=== PATIENT | male | born 1935 | race Caucasian/White ===

== ENCOUNTER 2017-10-27 18:16 | Inpatient (IN) | payer MEDICARE, BC, SELFPAY ==
[2017-10-27 18:58] VITALS: BP 141/73; PULSE 88; RESP 18; TEMP 37.6; O2SAT 98; BMI 26.2
[2017-10-27 19:00] VITALS: O2SAT 98
[2017-10-27 20:06] VITALS: BMI 26.2
--- NOTE | 2017-10-27 20:12 | NURSING ---
Discussed codes status with patient, at this time patient wishes to be a full code.
[2017-10-27 21:26] VITALS: BP 138/63; PULSE 105
[2017-10-27] MEDS: Metoprolol(XL)Succ 25 MG Tablet PO (21:26)
[2017-10-27] MEDS: Doxazosin 4 MG Tablet 8 MG PO (21:26)
[2017-10-27] MEDS: Finasteride 5 MG Tablet PO (21:26)
[2017-10-27] MEDS: Chlorhexidine 480 ML 15 ML PO (21:28)
[2017-10-27] MEDS: Heparin Injection (Vial) 5,000 UNIT/ML VIAL 5000 UNIT SC (21:30)
--- NOTE | 2017-10-27 22:03 | PCM.HP.STD ---
Problem List (1) Dysphagia Status: Acute (2) Esophageal cancer Status: Chronic (3) Cancer of neck Status: Chronic (4) Lung cancer Status: Chronic (5) Prostate cancer Status: Chronic (6) Hypertension Status: Chronic (7) Atrial fibrillation Status: Chronic (8) BPH (benign prostatic hyperplasia) Status: Chronic (9) Osteoarthritis Status: Chronic (10) Shortness of breath Status: Acute (11) GERD (gastroesophageal reflux disease) Status: Chronic History of Present Illness Date of Admission: 10/27/17 Chief Complaint: Here for rehabiltation, strengthening, prior to discharge home with siginficant other. The patient is a 82 year old Male with below past medical history significant for esophageal cancer with following, admitted from [facility]. 10/14/2017 Patient had dysphagia due to obstruction, EGD shows food particles. 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 Repeat EGD showed neoplastic progression, esophageal stent placed. He has increased secretions but able to cough out. Wash cloth on chest to catch secretions. 10/27/2017 Admit to TCU for rehabilitation, strengthening, prior to discharge home with significant other. Past Medical History Past Medical History (Chronic Problems): Chronic Problems Esophageal cancer (Chronic) Cancer of neck (Chronic) Lung cancer (Chronic) Prostate cancer (Chronic) Hypertension (Chronic) Atrial fibrillation (Chronic) BPH (benign prostatic hyperplasia) (Chronic) Osteoarthritis (Chronic) GERD (gastroesophageal reflux disease) (Chronic) Allergies No Known Allergies Allergy (Verified 03/02/17 15:00) Home Medications: Ambulatory Orders Medication Instructions Recorded Calcium Carbonate/Vitamin D3 1 each PO DAILY 03/02/17 [Calcium 600 + Vit D3 Caplet] Doxazosin Mesylate [Cardura] 4 mg PO QHS 03/02/17 Finasteride [Proscar] 5 mg PO QHS 03/02/17 Metoprolol Succinate [Toprol Xl] 25 mg PO QHS 03/02/17 Multivitamin [Multiple Vitamins] 1 each PO DAILY 03/02/17 Phytonadione [Mephyton, Vitamin K1] 2.5 mg PO X1 03/02/17 Warfarin Sodium [Coumadin] 5 mg PO QHS 03/02/17 Surgical History: - - Tracheostomy, Esophageal stent. Psychiatric History: No pertinent psych hx Lives: Spouse/ Significant Other Smoking Status: Former smoker Tobacco Use: Non-smoker Alcohol: Occasional Drugs: None - *Family History Maternal History Items: No pertinent history Paternal History Items: No pertinent history Review of Systems Constitutional: Denies: Chills, Fever, Weight Change HEENT: Denies: Head Aches, Sinus Congestion, Sinus Drainage Cardiovascular: Denies: Chest Pain, Palpitations Respiratory: Denies: Cough, Shortness of breath at rest, Sputum production Gastrointestinal: Denies: Abdominal Pain, Nausea, Vomiting Genitourinary: Denies: Dysuria Musculoskeletal: Denies: Joint Pain, Joint Tenderness Skin: Denies: Rash, Wounds Neurological: Denies: Numbness, Tingling, Focal weakness Psychiatric: Denies: Anxiety, Depression, Homicidal Ideations, Suicidal Ideations Hematologic/ Lymphatic: Denies: Easy Bruising, Easy Bleeding VTE Information - Inpt Only VTE Present on Admission: No VTE Mechan Device Prophylaxis: Knee High RONALD Hose VTE Pharm Prophylaxis ordered?: Yes Patient Problems: Active and Suspected Problems Dysphagia (Acute) Shortness of breath (Acute) - Physical Exam General: Alert, Oriented x3, Cooperative HEENT: Atraumatic, PERRLA, EOMI, Normocephalic Neck: Supple, No JVD, Negative Carotid Bruits, - - Tracheostomy. Lungs: Clear to auscultation, Normal air movement Cardiovascular: Regular rate, No murmurs Abdomen: Bowel Sounds Present, Soft, Non Tender Extremities: No edema, Capillary Refill Less than 3 Seconds Skin: No rashes, No breakdown Musculoskeletal: No Tenderness to Palpation of Joints or Extremities Neurological: Cranial nerves II-XII grossly intact Psych/Mental Status: Normal Affect, Appropriate Vital Signs Temp Pulse Resp BP Pulse Ox 99.6 F H 105 H 18 138/63 H 98 10/27/17 18:58 10/27/17 21:26 10/27/17 18:58 10/27/17 21:26 10/27/17 19:00 Oxygen Flow Rate (L/min) 4 Oxygen Delivery Method Trach Collar Weight: 92.675 kg Body Mass Index (BMI) 26.2 Assessment/Plan All Active Problems Dysphagia (Acute) Shortness of breath (Acute) 82 year old male with below past medical history significant for esophageal cancer, hospitalized for dysphagia, esophageal stent placed due to progression of cancer, admitted to TCU for rehabilitation, strengthening, prior to discharge home with significant other. Debility - PT/OT. Tracheostomy - ST. Pain - Tylenol 1000MG Q8H PRN mild pain. Bowel - Miralax 17GM daily, Senna/colace 1 tablet BID, Dulcoalx 10MG [place] daily PRN. Pneumonia vaccination - Administer Prevnar 13 and/or Pneumovax 23 as necessary. DVT prophylaxis - on Lovenox/warfarin bridge. Shortness of breath - Albuterol 2.5MG Q4H. Sore throat - Cepacol 1 lozenge 1 Q2H PRN, Peridex 15ML QID. BPH - Cardura 8MG QHS, Finasteride 5MG QHS. Congestion - Mucinex 600MG twice daily. Hypertension - Metoprolol succinate 25MG QHS. GERD - Pantoprazole 40MG daily. Atrial Fibrillation - Metoprolol succinate 25MG QHS, Warfarin 5MG 4x/day, 2.5MG 3x/day, on Lovenox bridge. Code Status - Esophageal stent is palliative, if resident does not progress with therapy, consider hospice referral for end of life. Resident currently FULL CODE.
--- NOTE | 2017-10-27 22:14 | HP.PCM_ITS ---
Problem List (1) Dysphagia Status: Acute (2) Esophageal cancer Status: Chronic (3) Cancer of neck Status: Chronic (4) Lung cancer Status: Chronic (5) Prostate cancer Status: Chronic (6) Hypertension Status: Chronic (7) Atrial fibrillation Status: Chronic (8) BPH (benign prostatic hyperplasia) Status: Chronic (9) Osteoarthritis Status: Chronic (10) Shortness of breath Status: Acute (11) GERD (gastroesophageal reflux disease) Status: Chronic History of Present Illness Date of Admission: 10/27/17 Chief Complaint: Here for rehabiltation, strengthening, prior to discharge home with siginficant other. The patient is a 82 year old Male with below past medical history significant for esophageal cancer with following, admitted from [facility]. 10/14/2017 Patient had dysphagia due to obstruction, EGD shows food particles. 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 Repeat EGD showed neoplastic progression, esophageal stent placed. He has increased secretions but able to cough out. Wash cloth on chest to catch secretions. 10/27/2017 Admit to TCU for rehabilitation, strengthening, prior to discharge home with significant other. Past Medical History Past Medical History (Chronic Problems): Chronic Problems Esophageal cancer (Chronic) Cancer of neck (Chronic) Lung cancer (Chronic) Prostate cancer (Chronic) Hypertension (Chronic) Atrial fibrillation (Chronic) BPH (benign prostatic hyperplasia) (Chronic) Osteoarthritis (Chronic) GERD (gastroesophageal reflux disease) (Chronic) Allergies No Known Allergies Allergy (Verified 03/02/17 15:00) Home Medications: Ambulatory Orders Medication Instructions Recorded Calcium Carbonate/Vitamin D3 1 each PO DAILY 03/02/17 [Calcium 600 + Vit D3 Caplet] Doxazosin Mesylate [Cardura] 4 mg PO QHS 03/02/17 Finasteride [Proscar] 5 mg PO QHS 03/02/17 Metoprolol Succinate [Toprol Xl] 25 mg PO QHS 03/02/17 Multivitamin [Multiple Vitamins] 1 each PO DAILY 03/02/17 Phytonadione [Mephyton, Vitamin K1] 2.5 mg PO X1 03/02/17 Warfarin Sodium [Coumadin] 5 mg PO QHS 03/02/17 Surgical History: - - Tracheostomy, Esophageal stent. Psychiatric History: No pertinent psych hx Lives: Spouse/ Significant Other Smoking Status: Former smoker Tobacco Use: Non-smoker Alcohol: Occasional Drugs: None - *Family History Maternal History Items: No pertinent history Paternal History Items: No pertinent history Review of Systems Constitutional: Denies: Chills, Fever, Weight Change HEENT: Denies: Head Aches, Sinus Congestion, Sinus Drainage Cardiovascular: Denies: Chest Pain, Palpitations Respiratory: Denies: Cough, Shortness of breath at rest, Sputum production Gastrointestinal: Denies: Abdominal Pain, Nausea, Vomiting Genitourinary: Denies: Dysuria Musculoskeletal: Denies: Joint Pain, Joint Tenderness Skin: Denies: Rash, Wounds Neurological: Denies: Numbness, Tingling, Focal weakness Psychiatric: Denies: Anxiety, Depression, Homicidal Ideations, Suicidal Ideations Hematologic/ Lymphatic: Denies: Easy Bruising, Easy Bleeding VTE Information - Inpt Only VTE Present on Admission: No VTE Mechan Device Prophylaxis: Knee High RONALD Hose VTE Pharm Prophylaxis ordered?: Yes Patient Problems: Active and Suspected Problems Dysphagia (Acute) Shortness of breath (Acute) - Physical Exam General: Alert, Oriented x3, Cooperative HEENT: Atraumatic, PERRLA, EOMI, Normocephalic Neck: Supple, No JVD, Negative Carotid Bruits, - - Tracheostomy. Lungs: Clear to auscultation, Normal air movement Cardiovascular: Regular rate, No murmurs Abdomen: Bowel Sounds Present, Soft, Non Tender Extremities: No edema, Capillary Refill Less than 3 Seconds Skin: No rashes, No breakdown Musculoskeletal: No Tenderness to Palpation of Joints or Extremities Neurological: Cranial nerves II-XII grossly intact Psych/Mental Status: Normal Affect, Appropriate Vital Signs Temp Pulse Resp BP Pulse Ox 99.6 F H 105 H 18 138/63 H 98 10/27/17 18:58 10/27/17 21:26 10/27/17 18:58 10/27/17 21:26 10/27/17 19:00 Oxygen Flow Rate (L/min) 4 Oxygen Delivery Method Trach Collar Weight: 92.675 kg Body Mass Index (BMI) 26.2 Assessment/Plan All Active Problems Dysphagia (Acute) Shortness of breath (Acute) 82 year old male with below past medical history significant for esophageal cancer, hospitalized for dysphagia, esophageal stent placed due to progression of cancer, admitted to TCU for rehabilitation, strengthening, prior to discharge home with significant other. * Debility - PT/OT. * Tracheostomy - ST. * Pain - Tylenol 1000MG Q8H PRN mild pain. * Bowel - Miralax 17GM daily, Senna/colace 1 tablet BID, Dulcoalx 10MG CT daily PRN. * Pneumonia vaccination - Administer Prevnar 13 and/or Pneumovax 23 as necessary. * DVT prophylaxis - on Lovenox/warfarin bridge. * Shortness of breath - Albuterol 2.5MG Q4H. * Sore throat - Cepacol 1 lozenge 1 Q2H PRN, Peridex 15ML QID. * BPH - Cardura 8MG QHS, Finasteride 5MG QHS. * Congestion - Mucinex 600MG twice daily. * Hypertension - Metoprolol succinate 25MG QHS. * GERD - Pantoprazole 40MG daily. * Atrial Fibrillation - Metoprolol succinate 25MG QHS, Warfarin 5MG 4x/day, 2.5MG 3x/day, on Lovenox bridge. * Code Status - Esophageal stent is palliative, if resident does not progress with therapy, consider hospice referral for end of life. Resident currently FULL CODE.
[2017-10-28] VITALS (7 sets, daily range): BP systolic 131; BP diastolic 59; PULSE 72–94; RESP 17–20; TEMP 36.8; O2SAT 93–98
[2017-10-28] MEDS: Acetaminophen 500 MG Tablet 1000 MG PO ×2 (02:32→18:38)
[2017-10-28 06:08] LABS: Absolute Lymphocyte Count 1.05 X10^3/ul (0.83-4.51); Absolute Neutrophil Count 8.5 X10^3/uL (2.0-7.7); Basophil# 0.02 X10^3/uL; Basophil% 0.2 % (0-1); Eosinophil# 0.08 X10^3/uL; Eosinophils% 0.7 % (0-5); Hematocrit 25.2 % (40-54); Hemoglobin 8.1 g/dl (13.0-16.5); Lymphocyte # 1.05 X10^3/ul (4.0); Lymphocyte % 9.7 % (19-41); Mean Corp Hgb Conc 32.1 g/gl (32-36); Mean Corpuscular Hgb 32.4 pg (27.0-32.0); Mean Corpuscular Volume 100.8 fL (80-94); Mean Platelet Vol. 9.1 fl (6.2-12.0); Monocyte# 1.17 X10^3/uL; Monocyte% 10.8 % (0-10); Neutrophil # 8.46 X10^3/uL (2.7-7.7); Platelet Count 276 K/mm3 (150-450); RBC Distribution Width CV 12.1 % (11.6-14.6); RBC Distribution Width SD 43.3 fl (35.1-43.9); White Blood Count 10.9 K/mm3 (4.4-11.0)
[2017-10-28 06:09] LABS: POSITIVE COUNT NO; POSITIVE DIFFERENTIAL NO; POSITIVE MORPHOLOGY NO
[2017-10-28 06:10] LABS: International Normalized Ratio 1.7
[2017-10-28 06:30] LABS: Anion Gap 9 (5-15); BUN 11 mg/dL (7-18); Calcium,Total 8.3 mg/dL (8.5-10.1); Chloride 102 mmol/L (98-107); Creatinine, Serum 0.74 mg/dL (0.70-1.30); EST Glomerular Filtration Rate 109 mL/min (>60); Est Glom Filt Rate - Afr Amer 131 mL/min (>60); Estimated Creatinine Clearance 67.36 ml/min; Glucose 115 mg/dL (74-106); Potassium 3.3 mmol/L (3.5-5.1); Sodium Level 141 mmol/L (136-145)
[2017-10-28] MEDS: Pantoprazole Sodium 40 MG Tablet PO (06:51)
[2017-10-28] MEDS: guaiFENesin 600 MG Tablet PO (06:51)
[2017-10-28] MEDS: Chlorhexidine 480 ML 15 ML PO ×4 (06:52→22:37)
[2017-10-28] MEDS: Enoxaparin 40 MG/0.4 ML Syringe SC (06:54)
[2017-10-28] MEDS: Albuterol 2.5 MG/3 ML VIAL.NEB. INHALATION ×5 (07:40→23:47)
[2017-10-28] MEDS: Iron Polysaccharide Complex 150 MG CAPSULE PO (09:12)
[2017-10-28] MEDS: Tuberculin,Purif.prot.deriv. 50 TU/ML Vial 5 ML ID (11:49)
--- NOTE | 2017-10-28 14:04 | NURSING ---
Per ST, patient now nectar thick, mechanical soft diet, supervised.
--- NOTE | 2017-10-28 14:12 | NURSING ---
Trach care provided. Copious amount of thick, yellow/green sputum with foul odor. Dr. Alcaraz made aware, NO for sputum culture and gram stain.
--- NOTE | 2017-10-28 14:25 | PCM.PN.RX ---
<Izaiah Wyatt D - Last Filed: 10/28/17 14:25> Progress Note - Pharmacy Subjective: TCU Admission Objective: Allergies No Known Allergies Allergy (Verified 03/02/17 15:00) Current Medications Generic Name Dose Route Start Last Admin Trade Name Freq PRN Reason Stop Dose Admin Acetaminophen 1,000 mg 10/27/17 22:16 10/28/17 02:32 Tylenol PO 1,000 mg Q8H PRN PRN Administration MILD PAIN (1-310) Albuterol Sulfate 2.5 mg 10/27/17 18:45 10/28/17 11:30 Ventolin Aerosols INHALATION Not Given Q4H.RT MARTA Bisacodyl 10 mg 10/27/17 18:40 Dulcolax RECTAL DAILY PRN Constipation Chlorhexidine Gluconate 15 ml 10/27/17 22:00 10/28/17 11:52 Peridex PO 15 ml 0600,1200,1800,2200 [facility] Administration Doxazosin Mesylate 8 mg 10/27/17 22:00 10/27/17 21:26 Cardura PO 8 mg QHS MARTA Administration Enoxaparin Sodium 40 mg 10/28/17 06:00 10/28/17 06:54 Lovenox SC 40 mg DAILY@0600 [facility] Administration Finasteride 5 mg 10/27/17 22:00 10/27/17 21:26 Proscar PO 5 mg QHS [facility] Administration Guaifenesin 600 mg 10/28/17 06:00 10/28/17 06:51 Mucinex PO 600 mg BID [facility] Administration Metoprolol Succinate 25 mg 10/27/17 22:00 10/27/17 21:26 Toprol Xl (Beta Marlin) PO 25 mg QHS [facility]A Administration Nutritional Formula (Lactose Free) 120 ml 10/28/17 06:00 10/28/17 12:00 Ensure Enlive PO 120 ml 4X/DAY [facility] Administration Pantoprazole Sodium 40 mg 10/28/17 06:00 10/28/17 06:51 Protonix PO 40 mg DAILY [facility] Administration Polyethylene Glycol 17 gm 10/28/17 06:00 10/28/17 06:50 Miralax PO Not Given DAILY [facility] Polysaccharide Iron Complex 150 mg 10/28/17 09:00 10/28/17 09:12 Ferrex 150 PO 150 mg DAILYCM [facility] Administration Potassium Chloride 20 meq 10/29/17 08:00 K-Dur PO DAILYCM [facility] Senna/Docusate Sodium 1 tablet 10/28/17 06:00 10/28/17 06:50 Senokot-S, Marissa-Colace PO Not Given BID [facility] Throat Lozenges 1 lozenge 10/27/17 18:34 Cepacol Sore Throat Lozenge MUCOUS MEM Q2H PRN PRN SORE THROAT Tuberculin PPD 5 tu 11/04/17 10:00 Tubersol, Aplisol, Ppd ID 11/04/17 10:01 X1 ONE Warfarin Sodium 5 mg 10/29/17 17:00 Coumadin (Pbkc) PO TuWeThSa@1700 [facility] Warfarin Sodium 2.5 mg 10/28/17 17:00 Coumadin (Pbkc) PO SuMoFr@1700 [facility] Problem List Dysphagia (Acute) Esophageal cancer (Chronic) Cancer of neck (Chronic) Lung cancer (Chronic) Prostate cancer (Chronic) Hypertension (Chronic) Atrial fibrillation (Chronic) BPH (benign prostatic hyperplasia) (Chronic) Osteoarthritis (Chronic) Shortness of breath (Acute) GERD (gastroesophageal reflux disease) (Chronic) Vital Signs Temp Pulse Resp BP Pulse Ox 99.6 F H 72 17 138/63 H 93 10/27/17 18:58 10/28/17 08:37 10/28/17 08:37 10/27/17 21:26 10/28/17 08:37 Oxygen Flow Rate (L/min) 4 Oxygen Delivery Method Trach Collar Weight: 92.675 kg Body Mass Index (BMI) 26.2 Sodium 141 mmol/L (136-145) 10/28/17 05:35 Potassium 3.3 mmol/L (3.5-5.1) L 10/28/17 05:35 Chloride 102 mmol/L (98-107) 10/28/17 05:35 Carbon Dioxide 30.0 mmol/L (21.0-32.0) 10/28/17 05:35 Anion Gap 9 (5-15) 10/28/17 05:35 BUN 11 mg/dL (7-18) 10/28/17 05:35 Creatinine 0.74 mg/dL (0.70-1.30) 10/28/17 05:35 Est GFR (MDRD) Af Amer 131 mL/min (>60) 10/28/17 05:35 Est GFR (MDRD) Non-Af 109 mL/min (>60) 10/28/17 05:35 BUN/Creatinine Ratio 15.0 RATIO (10-20) 10/28/17 05:35 Glucose 115 mg/dL (74-106) H 10/28/17 05:35 Assessment/Plan: 1) Pain APAP for mild pain, Cepacol for sore throat. Continue to monitor prn medication use, daily pain scores. 2) Pulm Albuterol scheduled, guaifenesin twice daily. Continue to monitor for shortness of breath. 3) BPH Doxazosin, finasteride. Continue to monitor for symptoms. 4) AFib/HTN Warfarin daily, metoprolol XL daily. Continue to monitor PT/INR, s/s bleeding, BP/HR. 5) GI Pantoprazole daily. Continue to monitor s/s GI distress 6) Nutrition Fe, KCl, Ensure. Continue to monitor electrolytes. 7) DVT PPx Enoxaparin daily. Continue to monitor s/s bleeding/clot, D/C when INR within goal range. Psychotropic Medications: None Unnecessary Medications: None Bowel Regimen: 8) Senna/s, PEG, prn bisacodyl. Continue to monitor prn medication use, for constipation/diarrhea. Date of Note:: 10/28/17 - Provider Comments Provider responsibility: Provider responsible to enter orders to implement recommendations <Ceasar Alcaraz Chi - Last Filed: 10/28/17 19:07> Progress Note - Pharmacy Subjective: [] Objective: Allergies No Known Allergies Allergy (Verified 03/02/17 15:00) Current Medications Generic Name Dose Route Start Last Admin Trade Name Freq PRN Reason Stop Dose Admin Acetaminophen 1,000 mg 10/27/17 22:16 10/28/17 18:38 Tylenol PO 1,000 mg Q8H PRN PRN Administration MILD PAIN (1-3/10) Albuterol Sulfate 2.5 mg 10/27/17 18:45 10/28/17 16:30 Ventolin Aerosols INHALATION 2.5 mg Q4H.RT [facility]ARTA Administration Bisacodyl 10 mg 10/27/17 18:40 Dulcolax RECTAL DAILY PRN Constipation Chlorhexidine Gluconate 15 ml 10/27/17 22:00 10/28/17 18:39 Peridex PO 15 ml 0600,1200,1800,2200 [facility] Administration Doxazosin Mesylate 8 mg 10/27/17 22:00 10/27/17 21:26 Cardura PO 8 mg QHS [facility] Administration Enoxaparin Sodium 40 mg 10/28/17 06:00 10/28/17 06:54 Lovenox SC 40 mg DAILY@0600 [facility] Administration Finasteride 5 mg 10/27/17 22:00 10/27/17 21:26 Proscar PO 5 mg QHS [facility] Administration Guaifenesin 600 mg 10/28/17 06:00 10/28/17 06:51 Mucinex PO 600 mg BID [facility] Administration Metoprolol Succinate 25 mg 10/27/17 22:00 10/27/17 21:26 Toprol Xl (Beta Marlin) PO 25 mg QHS [facility] Administration Nutritional Formula (Lactose Free) 120 ml 10/28/17 06:00 10/28/17 18:40 Ensure Enlive PO Not Given 4X/DAY [facility] Pantoprazole Sodium 40 mg 10/28/17 06:00 10/28/17 06:51 Protonix PO 40 mg DAILY [facility] Administration Polyethylene Glycol 17 gm 10/28/17 06:00 10/28/17 06:50 Miralax PO Not Given DAILY [facility] Polysaccharide Iron Complex 150 mg 10/28/17 09:00 10/28/17 09:12 [facility] Potassium Chloride 20 meq 10/29/17 08:00 [facility] Senna/Docusate Sodium 1 tablet 10/28/17 06:00 10/28/17 18:40 Senokot-S, Marissa-Colace PO Not Given BID [facility] Throat Lozenges 1 lozenge 10/27/17 18:34 Cepacol Sore Throat Lozenge MUCOUS MEM Q2H PRN PRN SORE THROAT Tuberculin PPD 5 tu 11/04/17 10:00 Tubersol, Aplisol, Ppd ID 11/04/17 10:01 X1 ONE Warfarin Sodium 5 mg 10/29/17 17:00 Coumadin (Pbkc) PO TuWeThSa@1700 [facility] Warfarin Sodium 2.5 mg 10/28/17 17:00 10/28/17 18:40 Coumadin (Pbkc) PO 2.5 mg SuMoFr@1700 [facility] Administration Problem List Dysphagia (Acute) Esophageal cancer (Chronic) Cancer of neck (Chronic) Lung cancer (Chronic) Prostate cancer (Chronic) Hypertension (Chronic) Atrial fibrillation (Chronic) BPH (benign prostatic hyperplasia) (Chronic) Osteoarthritis (Chronic) Shortness of breath (Acute) GERD (gastroesophageal reflux disease) (Chronic) Vital Signs Temp Pulse Resp BP Pulse Ox 98.2 F 78 20 H 131/59 H 98 10/28/17 15:51 10/28/17 17:08 10/28/17 17:08 10/28/17 15:51 10/28/17 15:51 Oxygen Flow Rate (L/min) 4 Oxygen Delivery Method Venturi Mask Weight: 92.675 kg Body Mass Index (BMI) 26.2 Sodium 141 mmol/L (136-145) 10/28/17 05:35 Potassium 3.3 mmol/L (3.5-5.1) L 10/28/17 05:35 Chloride 102 mmol/L (98-107) 10/28/17 05:35 Carbon Dioxide 30.0 mmol/L (21.0-32.0) 10/28/17 05:35 Anion Gap 9 (5-15) 10/28/17 05:35 BUN 11 mg/dL (7-18) 10/28/17 05:35 Creatinine 0.74 mg/dL (0.70-1.30) 10/28/17 05:35 Est GFR (MDRD) Af Amer 131 mL/min (>60) 10/28/17 05:35 Est GFR (MDRD) Non-Af 109 mL/min (>60) 10/28/17 05:35 BUN/Creatinine Ratio 15.0 RATIO (10-20) 10/28/17 05:35 Glucose 115 mg/dL (74-106) H 10/28/17 05:35 Assessment/Plan: Psychotropic Medications: Unnecessary Medications: Bowel Regimen: - Provider Comments Provider responsibility: Provider responsible to enter orders to implement recommendations Provider Comments to Recommendations by Pharmacy: Agree
--- NOTE | 2017-10-28 14:32 | PHA.CONS_ITS ---
<Izaiah Wyatt D - Last Filed: 10/28/17 14:25> Progress Note - Pharmacy Subjective: TCU Admission Objective: Allergies No Known Allergies Allergy (Verified 03/02/17 15:00) Current Medications Generic Name Dose Route Start Last Admin Trade Name Freq PRN Reason Stop Dose Admin Acetaminophen 1,000 mg 10/27/17 22:16 10/28/17 02:32 Tylenol PO 1,000 mg Q8H PRN PRN Administration MILD PAIN (1-310) Albuterol Sulfate 2.5 mg 10/27/17 18:45 10/28/17 11:30 Ventolin Aerosols INHALATION Not Given Q4H.RT MARTA Bisacodyl 10 mg 10/27/17 18:40 Dulcolax RECTAL DAILY PRN Constipation Chlorhexidine Gluconate 15 ml 10/27/17 22:00 10/28/17 11:52 Peridex PO 15 ml 0600,1200,1800,2200 [facility] Administration Doxazosin Mesylate 8 mg 10/27/17 22:00 10/27/17 21:26 Cardura PO 8 mg QHS MARTA Administration Enoxaparin Sodium 40 mg 10/28/17 06:00 10/28/17 06:54 Lovenox SC 40 mg DAILY@0600 MARTA Administration Finasteride 5 mg 10/27/17 22:00 10/27/17 21:26 Proscar PO 5 mg QHS [facility] Administration Guaifenesin 600 mg 10/28/17 06:00 10/28/17 06:51 Mucinex PO 600 mg BID MARTA Administration Metoprolol Succinate 25 mg 10/27/17 22:00 10/27/17 21:26 Toprol Xl (Beta Marlin) PO 25 mg QHS MARTA Administration Nutritional Formula (Lactose Free) 120 ml 10/28/17 06:00 10/28/17 12:00 Ensure Enlive PO 120 ml 4X/DAY MARTA Administration Pantoprazole Sodium 40 mg 10/28/17 06:00 10/28/17 06:51 Protonix PO 40 mg DAILY MARTA Administration Polyethylene Glycol 17 gm 10/28/17 06:00 10/28/17 06:50 Miralax PO Not Given DAILY MARTA Polysaccharide Iron Complex 150 mg 10/28/17 09:00 10/28/17 09:12 Ferrex 150 PO 150 mg DAILYCM MARTA Administration Potassium Chloride 20 meq 10/29/17 08:00 K-Dur PO DAILYCM [facility] Senna/Docusate Sodium 1 tablet 10/28/17 06:00 10/28/17 06:50 Senokot-S, Marissa-Colace PO Not Given BID [facility] Throat Lozenges 1 lozenge 10/27/17 18:34 Cepacol Sore Throat Lozenge MUCOUS MEM Q2H PRN PRN SORE THROAT Tuberculin PPD 5 tu 11/04/17 10:00 Tubersol, Aplisol, Ppd ID 11/04/17 10:01 X1 ONE Warfarin Sodium 5 mg 10/29/17 17:00 Coumadin (Pbkc) PO TuWeThSa@1700 MARTA Warfarin Sodium 2.5 mg 10/28/17 17:00 Coumadin (Pbkc) PO SuMoFr@1700 [facility] Problem List Dysphagia (Acute) Esophageal cancer (Chronic) Cancer of neck (Chronic) Lung cancer (Chronic) Prostate cancer (Chronic) Hypertension (Chronic) Atrial fibrillation (Chronic) BPH (benign prostatic hyperplasia) (Chronic) Osteoarthritis (Chronic) Shortness of breath (Acute) GERD (gastroesophageal reflux disease) (Chronic) Vital Signs Temp Pulse Resp BP Pulse Ox 99.6 F H 72 17 138/63 H 93 10/27/17 18:58 10/28/17 08:37 10/28/17 08:37 10/27/17 21:26 10/28/17 08:37 Oxygen Flow Rate (L/min) 4 Oxygen Delivery Method Trach Collar Weight: 92.675 kg Body Mass Index (BMI) 26.2 Sodium 141 mmol/L (136-145) 10/28/17 05:35 Potassium 3.3 mmol/L (3.5-5.1) L 10/28/17 05:35 Chloride 102 mmol/L (98-107) 10/28/17 05:35 Carbon Dioxide 30.0 mmol/L (21.0-32.0) 10/28/17 05:35 Anion Gap 9 (5-15) 10/28/17 05:35 BUN 11 mg/dL (7-18) 10/28/17 05:35 Creatinine 0.74 mg/dL (0.70-1.30) 10/28/17 05:35 Est GFR (MDRD) Af Amer 131 mL/min (>60) 10/28/17 05:35 Est GFR (MDRD) Non-Af 109 mL/min (>60) 10/28/17 05:35 BUN/Creatinine Ratio 15.0 RATIO (10-20) 10/28/17 05:35 Glucose 115 mg/dL (74-106) H 10/28/17 05:35 Assessment/Plan: 1) Pain APAP for mild pain, Cepacol for sore throat. Continue to monitor prn medication use, daily pain scores. 2) Pulm Albuterol scheduled, guaifenesin twice daily. Continue to monitor for shortness of breath. 3) BPH Doxazosin, finasteride. Continue to monitor for symptoms. 4) AFib/HTN Warfarin daily, metoprolol XL daily. Continue to monitor PT/INR, s/s bleeding , BP/HR. 5) GI Pantoprazole daily. Continue to monitor s/s GI distress 6) Nutrition Fe, KCl, Ensure. Continue to monitor electrolytes. 7) DVT PPx Enoxaparin daily. Continue to monitor s/s bleeding/clot, D/C when INR within goal range. Psychotropic Medications: None Unnecessary Medications: None Bowel Regimen: 8) Senna/s, PEG, prn bisacodyl. Continue to monitor prn medication use, for constipation/diarrhea. Date of Note:: 10/28/17 - Provider Comments Provider responsibility: Provider responsible to enter orders to implement recommendations <Ceasar Alcaraz Chi - Last Filed: 10/28/17 19:07> Progress Note - Pharmacy Subjective: [] Objective: Allergies No Known Allergies Allergy (Verified 03/02/17 15:00) Current Medications Generic Name Dose Route Start Last Admin Trade Name Freq PRN Reason Stop Dose Admin Acetaminophen 1,000 mg 10/27/17 22:16 10/28/17 18:38 Tylenol PO 1,000 mg Q8H PRN PRN Administration MILD PAIN (1-3/10) Albuterol Sulfate 2.5 mg 10/27/17 18:45 10/28/17 16:30 Ventolin Aerosols INHALATION 2.5 mg Q4H.RT MARTA Administration Bisacodyl 10 mg 10/27/17 18:40 Dulcolax RECTAL DAILY PRN Constipation Chlorhexidine Gluconate 15 ml 10/27/17 22:00 10/28/17 18:39 Peridex PO 15 ml 0600,1200,1800,2200 [facility] Administration Doxazosin Mesylate 8 mg 10/27/17 22:00 10/27/17 21:26 Cardura PO 8 mg QHS [facility] Administration Enoxaparin Sodium 40 mg 10/28/17 06:00 10/28/17 06:54 Lovenox SC 40 mg DAILY@0600 [facility] Administration Finasteride 5 mg 10/27/17 22:00 10/27/17 21:26 Proscar PO 5 mg QHS [facility] Administration Guaifenesin 600 mg 10/28/17 06:00 10/28/17 06:51 Mucinex PO 600 mg BID [facility] Administration Metoprolol Succinate 25 mg 10/27/17 22:00 10/27/17 21:26 Toprol Xl (Beta Marlin) PO 25 mg QHS [facility] Administration Nutritional Formula (Lactose Free) 120 ml 10/28/17 06:00 10/28/17 18:40 Ensure Enlive PO Not Given 4X/DAY [facility] Pantoprazole Sodium 40 mg 10/28/17 06:00 10/28/17 06:51 Protonix PO 40 mg DAILY [facility] Administration Polyethylene Glycol 17 gm 10/28/17 06:00 10/28/17 06:50 Miralax PO Not Given DAILY [facility] Polysaccharide Iron Complex 150 mg 10/28/17 09:00 10/28/17 09:12 [facility]rex [facility] [address] [facility] Administration Potassium Chloride 20 meq 10/29/17 08:00 [facility] Senna/Docusate Sodium 1 tablet 10/28/17 06:00 10/28/17 18:40 Senokot-S, Marissa-Colace PO Not Given BID [facility] Throat Lozenges 1 lozenge 10/27/17 18:34 Cepacol Sore Throat Lozenge MUCOUS MEM Q2H PRN PRN SORE THROAT Tuberculin PPD 5 tu 11/04/17 10:00 Tubersol, Aplisol, Ppd ID 11/04/17 10:01 X1 ONE Warfarin Sodium 5 mg 10/29/17 17:00 Coumadin (Pbkc) PO TuWeThSa@1700 [facility] Warfarin Sodium 2.5 mg 10/28/17 17:00 10/28/17 18:40 Coumadin (Pbkc) PO 2.5 mg SuMoFr@1700 [facility] Administration Problem List Dysphagia (Acute) Esophageal cancer (Chronic) Cancer of neck (Chronic) Lung cancer (Chronic) Prostate cancer (Chronic) Hypertension (Chronic) Atrial fibrillation (Chronic) BPH (benign prostatic hyperplasia) (Chronic) Osteoarthritis (Chronic) Shortness of breath (Acute) GERD (gastroesophageal reflux disease) (Chronic) Vital Signs Temp Pulse Resp BP Pulse Ox 98.2 F 78 20 H 131/59 H 98 10/28/17 15:51 10/28/17 17:08 10/28/17 17:08 10/28/17 15:51 10/28/17 15:51 Oxygen Flow Rate (L/min) 4 Oxygen Delivery Method Venturi Mask Weight: 92.675 kg Body Mass Index (BMI) 26.2 Sodium 141 mmol/L (136-145) 10/28/17 05:35 Potassium 3.3 mmol/L (3.5-5.1) L 10/28/17 05:35 Chloride 102 mmol/L (98-107) 10/28/17 05:35 Carbon Dioxide 30.0 mmol/L (21.0-32.0) 10/28/17 05:35 Anion Gap 9 (5-15) 10/28/17 05:35 BUN 11 mg/dL (7-18) 10/28/17 05:35 Creatinine 0.74 mg/dL (0.70-1.30) 10/28/17 05:35 Est GFR (MDRD) Af Amer 131 mL/min (>60) 10/28/17 05:35 Est GFR (MDRD) Non-Af 109 mL/min (>60) 10/28/17 05:35 BUN/Creatinine Ratio 15.0 RATIO (10-20) 10/28/17 05:35 Glucose 115 mg/dL (74-106) H 10/28/17 05:35 Assessment/Plan: Psychotropic Medications: Unnecessary Medications: Bowel Regimen: - Provider Comments Provider responsibility: Provider responsible to enter orders to implement recommendations Provider Comments to Recommendations by Pharmacy: Agree
--- NOTE | 2017-10-28 14:39 | CHAPLAIN ---
Type of Pastoral Visit _x__ Initial Visit ___ Follow-up Visit ___ On-call Visit ___ General Patient Visit ___ Spiritual Assessment ___ Family Conference ___ Bereavement ___ Rapid Response ___ Code Blue ___ Other (describe below) Pastoral Care Referral From _x__ Patient ___ Family ___ Nurse ___ Physician ___ Morning Babysitter ___ Extension Edger ___ Other (describe below) Sacrament/Intervention _x__ Active listening ___ Anointing ___ Hoahaoism ___ Bereavement ___ Communion ___ Kelley exploration ___ _x__ Life review _x__ Prayer ___ Reconciliation ___ Sacrament of Sick ___ Supportive presence ___ Wedding ___ Other (describe below) Pastoral Comments patient is limited in conversation due to trac; however spouse of pt is active in voicing her life history, background, and christianity belief; pt did respond to questions; pt does not have anxieties at this time he said; pt is welcoming of prayers
--- NOTE | 2017-10-28 18:36 | NURSING ---
Pt. unable to tolerated mech. soft diet, choking on small bites of meat and veggies. Patient had small emesis x1 and coughed up a copious amount of thick, yellow sputum. Trach care provided, patient tolerated well. Dr. Alcaraz updated, NO to down grade to tj and consult Bashir
--- NOTE | 2017-10-28 19:01 | NURSING ---
INR reviewed, NNO.
[2017-10-28] MEDS: Metoprolol(XL)Succ 25 MG Tablet PO (22:37)
[2017-10-28] MEDS: guaiFENesin 10 ML UDC (200MG/10ML) PO (22:37)
[2017-10-28] MEDS: Doxazosin 4 MG Tablet 8 MG PO (22:38)
[2017-10-28] MEDS: Finasteride 5 MG Tablet PO (22:38)
[2017-10-29] VITALS (8 sets, daily range): BP systolic 133–141; BP diastolic 64–72; PULSE 89–104; RESP 18; TEMP 36.8; O2SAT 93–99
[2017-10-29] MEDS: Acetaminophen 500 MG Tablet 1000 MG PO (02:26)
--- NOTE | 2017-10-29 02:44 | NURSING ---
Trach care performed, inner cannula cleaned in sterile solution and reinserted. Patient tolerated well. Patient has had copius amounts of sputum and needs suctioned quite frequently.
[2017-10-29] MEDS: guaiFENesin 10 ML UDC (200MG/10ML) PO ×4 (06:43→21:47)
[2017-10-29] MEDS: Pantoprazole Sodium 40 MG Tablet PO (06:43)
[2017-10-29] MEDS: Senna/Docusate Sodium 1 Tablet PO (06:43)
[2017-10-29] MEDS: Enoxaparin 40 MG/0.4 ML Syringe SC (06:44)
[2017-10-29] MEDS: Chlorhexidine 480 ML 15 ML PO ×4 (06:44→21:47)
[2017-10-29] MEDS: Albuterol 2.5 MG/3 ML VIAL.NEB. INHALATION ×5 (06:50→23:47)
[2017-10-29] MEDS: Iron Polysaccharide Complex 150 MG CAPSULE PO (08:17)
--- NOTE | 2017-10-29 10:48 | NURSING ---
KHADIJAH lopez notified of pt having difficulty with PILL for potassium, dissolved in water then thickened per order. interchange made to effervescent medication for faster easier swallowing.
--- NOTE | 2017-10-29 16:09 | NURSING ---
DR CHRISTINE AWARE OF PT SPUTUM GRAM STAIN RESULTS, NNO'S AT THIS TIME AWAITING CULTURE RESULTS.
--- NOTE | 2017-10-29 20:20 | NURSING ---
pt resting in bed. family visiting.
[2017-10-29] MEDS: Doxazosin 4 MG Tablet 8 MG PO (21:46)
[2017-10-29] MEDS: Finasteride 5 MG Tablet PO (21:47)
--- NOTE | 2017-10-29 21:50 | NURSING ---
[facility]ps here & completed trach care with assist of this rn & rn adrienne. tolerated well. took hs meds without difficulty. trach collar on @ 28%. gown changed.
[2017-10-29] MEDS: Metoprolol(XL)Succ 25 MG Tablet PO (21:56)
[2017-10-30] MEDS: Acetaminophen 500 MG Tablet 1000 MG PO ×2 (00:19→21:12)
[2017-10-30] MEDS: Chlorhexidine 480 ML 15 ML PO ×4 (04:48→20:57)
[2017-10-30] MEDS: guaiFENesin 10 ML UDC (200MG/10ML) PO ×5 (04:48→20:58)
[2017-10-30] MEDS: Enoxaparin 40 MG/0.4 ML Syringe SC (04:48)
[2017-10-30] MEDS: Pantoprazole Sodium 40 MG Tablet PO (04:48)
[2017-10-30 06:43] LABS: Anion Gap 8 (5-15); BUN 12 mg/dL (7-18); BUN/Creat Ratio 15.1 RATIO (10-20); Calcium,Total 8.4 mg/dL (8.5-10.1); Chloride 102 mmol/L (98-107); EST Glomerular Filtration Rate 99 mL/min (>60); Est Glom Filt Rate - Afr Amer 120 mL/min (>60); Glucose 141 mg/dL (74-106); Potassium 3.5 mmol/L (3.5-5.1); Sodium Level 141 mmol/L (136-145)
[2017-10-30] MEDS: Albuterol 2.5 MG/3 ML VIAL.NEB. INHALATION ×4 (07:35→23:05)
[2017-10-30 07:40] VITALS: PULSE 89; RESP 21
[2017-10-30] MEDS: Iron Polysaccharide Complex 150 MG CAPSULE PO (08:28)
[2017-10-30 14:43] VITALS: PULSE 81; RESP 18
[2017-10-30 15:32] VITALS: BP 126/66; PULSE 114; RESP 18; TEMP 36.1; O2SAT 99
[2017-10-30 19:18] VITALS: PULSE 101; RESP 22
[2017-10-30 20:58] VITALS: BP 145/65; PULSE 101
[2017-10-30] MEDS: Metoprolol(XL)Succ 25 MG Tablet PO (20:58)
[2017-10-30] MEDS: Finasteride 5 MG Tablet PO (20:58)
[2017-10-30] MEDS: Doxazosin 4 MG Tablet 8 MG PO (20:58)
[2017-10-30 23:10] VITALS: PULSE 91; RESP 20
[2017-10-31] MEDS: Chlorhexidine 480 ML 15 ML PO ×4 (05:34→21:47)
[2017-10-31] MEDS: Acetaminophen 500 MG Tablet 1000 MG PO ×2 (05:34→22:07)
[2017-10-31] MEDS: guaiFENesin 10 ML UDC (200MG/10ML) PO ×5 (05:35→21:47)
[2017-10-31] MEDS: Senna/Docusate Sodium 1 Tablet PO (05:35)
[2017-10-31] MEDS: Enoxaparin 40 MG/0.4 ML Syringe SC (05:36)
[2017-10-31 06:17] LABS: International Normalized Ratio 1.5
[2017-10-31 07:14] VITALS: PULSE 95; RESP 18; O2SAT 98
[2017-10-31] MEDS: Albuterol 2.5 MG/3 ML VIAL.NEB. INHALATION ×4 (07:14→19:15)
[2017-10-31] MEDS: Iron Polysaccharide Complex 150 MG CAPSULE PO (10:00)
[2017-10-31 11:43] VITALS: PULSE 88; RESP 20
[2017-10-31 15:08] VITALS: BP 142/68; PULSE 93; RESP 20; TEMP 36.7; O2SAT 97
[2017-10-31 15:35] VITALS: PULSE 88; RESP 20
--- NOTE | 2017-10-31 16:57 | NURSING ---
Trach care provided to patient. Patient has a red area with an open area on left side of trach, near trach insertion site. Discussed with anmol Vargas RN, NO to cleanse with NS, apply thin layer of skin prep and CDD BID and PRN.
[2017-10-31] MEDS: BENZOCAINE/MENTHOL 1 LOZENGE MUCOUS MEM (18:22)
[2017-10-31] MEDS: Finasteride 5 MG Tablet PO (21:47)
[2017-10-31] MEDS: Doxazosin 4 MG Tablet 8 MG PO (21:47)
[2017-10-31 21:48] VITALS: BP 147/78; PULSE 100
[2017-10-31] MEDS: Metoprolol(XL)Succ 25 MG Tablet PO (21:48)
[2017-11-01 00:15] VITALS: PULSE 104; RESP 20
[2017-11-01] MEDS: Albuterol 2.5 MG/3 ML VIAL.NEB. INHALATION ×5 (00:15→23:55)
[2017-11-01] MEDS: Enoxaparin 40 MG/0.4 ML Syringe SC (04:49)
[2017-11-01] MEDS: Chlorhexidine 480 ML 15 ML PO (04:49)
[2017-11-01] MEDS: guaiFENesin 10 ML UDC (200MG/10ML) PO ×2 (04:49→09:23)
[2017-11-01] MEDS: Acetaminophen 500 MG Tablet 1000 MG PO (06:30)
[2017-11-01 06:38] VITALS: PULSE 96; RESP 20
[2017-11-01] MEDS: Pantoprazole Sodium 40 MG Tablet PO (09:23)
[2017-11-01] MEDS: Iron Polysaccharide Complex 150 MG CAPSULE PO (09:24)
[2017-11-01 15:05] VITALS: PULSE 89; RESP 20
[2017-11-01 15:34] VITALS: BP 139/71; PULSE 95; RESP 20; TEMP 37.4; O2SAT 100
[2017-11-01] MEDS: 0.9% Normal Saline 1,000 ML 60 ML IV (18:16)
[2017-11-01 19:29] VITALS: PULSE 96; RESP 20; O2SAT 98
[2017-11-01 23:55] VITALS: PULSE 68; RESP 24; O2SAT 95
[2017-11-02] MEDS: Albuterol 2.5 MG/3 ML VIAL.NEB. INHALATION ×5 (03:27→22:20)
[2017-11-02 03:29] VITALS: PULSE 105; RESP 22
[2017-11-02 10:40] VITALS: PULSE 103; RESP 18
--- NOTE | 2017-11-02 10:43 | CASEMGMT ---
Plan of care meeting held. Resident present. Resident spouse unable to attend. This social work professor to contact resident spouse to give an update on plan of care meeting. Resident plans to discharge home with spouse at time of discharge. No discharge date set at this time, resident to continue with further care and treatment on the Transitional Care Unit. Support given. Will continue to follow. Ame KWAN, RECEPTIONIST TELEPHONE OPERATOR
[2017-11-02] MEDS: 0.9% Normal Saline 1,000 ML 60 ML IV (11:36)
--- NOTE | 2017-11-02 11:42 | NURSING ---
Addendum entered by Rosy Klein 11/02/17 11:45: SPUTUM ALSO SUCTIONED AWAY FROM TRACH. Original Note: REPORTS SOB. SPO2=95-92% ON RA. PT REQUESTING O2 BE REAPPLIED TO TRACH COLLAR. O2 APPLIED AT 5L VIA TRACH COLLAR. NEW BAG IV FLUIDS HUNG. PT DENIES FURTHER NEEDS.
--- NOTE | 2017-11-02 12:30 | SP.MBSS_ITS ---
PRIMARY / SECONDARY DIAGNOSIS: dysphagia (R13.10) REFERRING PHYSICIAN: Dr. Pastor Alcaraz MD CURRENT DIET: NPO pending MBS results. DENTITION: WFL MENTAL STATUS: WNL RESPIRATORY STATUS: O2 via room air (tracheostomy tube, Shiley; 6mm) PREVIOUS MODIFIED BARIUM SWALLOW STUDY: 10/25/2017 MBS at [facility] revealed oropharyngeal swallow function within functional limits. 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 10/14/2017 EGD revealed neoplastic progression; residual food particles. 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 STUDY FINDINGS: Patient participated in a Modified Barium Swallow (MBS) study on 11/02/2017. Dr. Womack was the radiologist present for this evaluation. This study was recorded in the lateral view and images were sent to PACs for storage. The following consistencies were presented to this patient for analysis of oropharyngeal swallow function: thin liquids and pudding textures. Remainder of consistencies held due to concerns for safety. Results of the MBS are as follows: PENETRATION / ASPIRATION SCALE (KRAMER): 1 = does not enter airway 2 = enters airway/above vocal folds/ejected 3 = enters airway/above vocal folds/not ejected 4 = enters airway/contacts vocal folds/ejected 5 = enters airway/contacts vocal folds/not ejected 6 = enters airway/below vocal folds/ejected 7 = enters airway/below vocal folds/not ejected despite effort 8 = enters airway/below vocal folds/no effort VIDEOFLOROSCOPIC SCALE SCORE (KRAMER): Grade I = aspiration of material that has penetrated into the laryngeal vestibule, intact cough reflex Grade II = aspiration < 10 % of the bolus, intact cough reflex Grade III = aspiration of < 10 % of the bolus, reduced cough reflex or aspiration of > 10 % of the bolus, intact cough reflex Grade IV = aspiration of > 10 % of the bolus, reduced cough reflex PENETRATION / ASPIRATION SCALE (SCORE) WITH VIDEOFLOROSCOPIC SCALE SCORE: Thin liquid - 5 mL tsp.: 7 - Grade III Thin liquid - 5 mL tsp.: 8 - Grade III Thin liquids via cup (single sip): 8 - Grade III Thin liquids via cup (single sip): 8 - Grade IV Pudding via spoon: 7 - Grade II IMPRESSION: DIAGNOSIS: severe oropharyngeal dysphagia (R13.12) ORAL PHASE CHARACTERIZED BY: LABIAL SEAL: no labial escape TONGUE CONTROL DURING BOLUS MANIPULATION: posterior escape of greater than half of bolus BOLUS PREPARATION / MASTICATION: solid textures held due to concerns for safety BOLUS TRANSPORT / LINGUAL MOTION: slowed tongue motion ORAL RESIDUE: residue collection on oral structures PHARYNGEAL PHASE CHARACTERIZED BY: INITIATION OF PHARYNGEAL SWALLOW: bolus head in pyriforms at first hyoid excursion SOFT PALATE ELEVATION: no bolus between soft palate and pharyngeal wall LARYNGEAL ELEVATION: partial to minimal superior movement of thyroid cartilage/ minimal approximation of arytenoids cartilage to epiglottic petiole ANTERIOR HYOID EXCURSION: trace anterior movement EPIGLOTTIC MOVEMENT: partial epiglottic inversion LARYNGEAL VESTIBULE CLOSURE AT HEIGHT OF SWALLOW: incomplete laryngeal vestibule closure with narrow column of air/contrast in laryngeal vestibule PHARYNGEAL STRIPPING WAVE: pharyngeal stripping wave present / diminished PHARYNGOESOPHAGEAL SEGMENT OPENING: minimal distension and minimal duration with marked obstruction of flow TONGUE BASE RETRACTION: narrow column of contrast between tongue base and posterior pharyngeal wall PHARYNGEAL RESIDUE: majority of contrast within or on pharyngeal structures ESOPHAGEAL PHASE CHARACTERIZED BY: ESOPHAGEAL BOLUS CLEARANCE IN THE UPRIGHT POSITION: could not view EFFECTS OF TREATMENT STRATEGIES ATTEMPTED: Chin tuck posture = ineffective (could not execute) Effort swallow = ineffective Double swallow = ineffective Liquid chaser = ineffective Reduced bolus size = ineffective DIET TEXTURE RECOMMENDATIONS: NPO; may require alternative means of nutrition INTERPRETATION OF RESULTS: Patient presents with severe oropharyngeal dysphagia (R13.12) associated with 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 Oral phase primarily marked by suboptimal lingual control with posterior bolus loss between 25-50% with thin liquids contributing to pre- prandial penetration and aspiration. Pharyngeal phase marked by severely impaired pharyngeal swallow onset timing resulting in suboptimal bolus location upon swallow onset contributing to pre-prandial and prandial penetration and aspiration; severely reduced closure of the airway during deglutition attributed to minimal hyolaryngeal excursion resulting in insufficient epiglottic inversion and poor laryngeal vestibule closure resulting in prandial penetration and aspiration with insufficient laryngeal vestibule pressure generated to expel penetrated material; and poor pharyngeal clearance / pharyngeal dysmotility secondary to reduced pharyngoesophageal segment opening resulting in pharyngeal retention within the pyriform sinuses with post prandial penetration and aspiration, further complicated by consolidation within the valleculae attributed to reduced tongue based retraction and posterior pharyngeal stripping wave action. Noted insufficient and inconsistent cough response to expel penetrated material / laryngotracheal aspiration; required suctioning by respiratory therapist immediately post study. Significant effort demonstrated to elicit swallow. Prominent anteriorly projecting osteophytes located from C-5 to C-7, increasing in size inferiorly; in isolation this is unlikely to significantly factor into dysmotility, though does contribute to poor pharyngoesophageal segment opening when combined with poor hyolaryngeal excursion and presence of the tracheostomy tube. Patient noted to both overtly and SILENTLY aspirate with thin liquids, increased sensory response with increased viscosity and volume, with clinical assessment at bedside relying on identification of classic overt signs and symptoms of aspiration unreliable. Very frequent and at times copious volumes aspirated during study. RECOMMENDATIONS: Would strongly discourage advancement to a PO diet without completion of a repeat modified barium swallow study due to the extent of aspiration identified that was SILENT in nature. Would consider alternative means of nutrition, though may be complicated by recent removal of PEG tube, in combination with apparent neoplasms located at additional site placements for alternative feeding. Patient requires intensive skilled speech-language intervention targeting continued diet texture management; training and implementation of recommended compensatory strategies; training and implementation of recommended oropharyngeal strengthening exercises to facilitate improved oropharyngeal strength and coordination. ADDITIONAL COMMENTS/RECOMMENDATIONS: Results and recommendations were discussed with the Patient immediately following MBS completion, with the Patient verbalizing understanding and agreement with all recommendations and education provided. IMAGE COUNT: [id number]
--- NOTE | 2017-11-02 14:00 | RAD_ITS ---
STUDY: SWALLOWING STUDY REASON FOR EXAM: Male, 82 years old. Dysphasia. History of laryngectomy. TECHNIQUE: The examination was performed with Speech Pathology in attendance. Under fluoroscopic observation, the patient ingested thin barium, thick barium, barium pudding, and barium coated cracker. FLUOROSCOPY TIME: 2:00 minutes/seconds. 1894 fluoroscopic images were obtained. RADIOLOGIST INVOLVEMENT: Radiologist was present and providing direct supervision. COMPARISON: None. FINDINGS: The following was observed during swallowing of the various mixtures of barium: Thin Barium: Silent aspiration with ingestion of thin liquids. Thick Barium: Silent aspiration with ingestion of nectar thickened liquids. RAD/Swallowing Function w/Video IMPRESSION: Silent aspiration with ingestion of thin and thick liquids. The swallow study findings were discussed with the patient by the speech pathologist at the conclusion of the examination. Please see speech pathology report for more information and recommendations. Electronically Signed: Zbigniew Womack MD at 13:21 EDT Tel [phone], Service support ,
[2017-11-02 14:38] VITALS: PULSE 76; RESP 18; O2SAT 96
--- NOTE | 2017-11-02 14:46 | CASEMGMT ---
Social Work Telephone call to resident spouse, Rebecca to give the update with the team meeting. Voicemail left for Rebecca as Rebecca did not answer. Will continue to follow. Ame KWAN, CHAIN PEGGER
[2017-11-02 15:53] VITALS: BP 133/77; PULSE 99; RESP 18; TEMP 37.3; O2SAT 98
--- NOTE | 2017-11-02 18:18 | NURSING ---
Dr. Alcaraz spoke with pt and family about peg tube. At this time, pt not wanting peg tube, has an appt with Dr. Bland on Tuesday and will decide after that.
[2017-11-02 18:30] VITALS: PULSE 99; RESP 18; O2SAT 94
[2017-11-02 22:20] VITALS: PULSE 96; RESP 18
[2017-11-03] VITALS (7 sets, daily range): BP systolic 134; BP diastolic 65; PULSE 85–104; RESP 18–20; TEMP 36.8; O2SAT 96–97
[2017-11-03] MEDS: Albuterol 2.5 MG/3 ML VIAL.NEB. INHALATION ×3 (02:20→19:05)
[2017-11-03] MEDS: 0.9% Normal Saline 1,000 ML 60 ML IV ×2 (03:40→20:07)
[2017-11-03 06:19] LABS: International Normalized Ratio 1.4; Prothrombin Time (Protime)PT. 17.2 SECONDS (11.7-14.9)
--- NOTE | 2017-11-03 09:01 | NURSING ---
pt remains NPO d/t failing cookie swallow yesterday. No meds given. Pt wanting to speak with Dr Bland regarding PEG placement, pt refusing PEG at this time. IVF continuous.
[2017-11-03] MEDS: Enoxaparin 40 MG/0.4 ML Syringe SC (10:37)
--- NOTE | 2017-11-03 10:37 | NURSING ---
Called Dr Alcaraz to see if pt is to receive his lovenox injection since pt not getting coumadin d/t NPO status at this time. New order to administer Lovenox today. Pt does see Dr Bland tomorrow.
--- NOTE | 2017-11-03 16:07 | CASEMGMT ---
Brief interview for mental status (BIMS) and resident mood interview (PHQ-9) completed on this day. BIMS score 15. PHQ-9 score 10/02
[2017-11-03] MEDS: Menthol/Lanolin/Calamine/Znox 113 GM Tube 1 APPLIC TOPICAL (20:29)
--- NOTE | 2017-11-03 22:40 | NURSING ---
Steph from [facility] came to floor and helped do Trach care. Trach deep suctioned with NS. Trach canula and skin cleaned, new dressing applied. Pt stated that he had a headache, will need to get order from Dr Alcaraz for meds as Pt is NPO.
--- NOTE | 2017-11-03 23:23 | NURSING ---
Dr. Alcaraz notified of pt complaint of a headache but remains NPO at this time. New orders entered.
[2017-11-03] MEDS: Ketorolac 30 MG/ML Syringe IM (23:34)
[2017-11-03] MEDS: Orphenadrine 60 MG/2 ML Ampul IM (23:35)
[2017-11-04] MEDS: Enoxaparin 40 MG/0.4 ML Syringe SC (05:23)
[2017-11-04] MEDS: Menthol/Lanolin/Calamine/Znox 113 GM Tube 1 APPLIC TOPICAL ×2 (05:23→22:14)
[2017-11-04 05:50] LABS: Absolute Lymphocyte Count 0.74 X10^3/ul (0.83-4.51); Absolute Neutrophil Count 8.3 X10^3/uL (2.0-7.7); Basophil# 0.02 X10^3/uL; Basophil% 0.2 % (0-1); Eosinophil# 0.07 X10^3/uL; Eosinophils% 0.7 % (0-5); Hematocrit 23.9 % (40-54); Hemoglobin 7.4 g/dl (13.0-16.5); Lymphocyte # 0.74 X10^3/ul (4.0); Lymphocyte % 7.2 % (19-41); Mean Corpuscular Volume 103.5 fL (80-94); Mean Platelet Vol. 8.1 fl (6.2-12.0); Monocyte# 1.08 X10^3/uL; Monocyte% 10.5 % (0-10); Neutrophil # 8.29 X10^3/uL (2.7-7.7); Neutrophil % 80.6 % (47-70); Platelet Count 320 K/mm3 (150-450); RBC Distribution Width CV 12.5 % (11.6-14.6); RBC Distribution Width SD 44.8 fl (35.1-43.9); Red Blood Count 2.31 M/mm3 (4.6-6.2); White Blood Count 10.3 K/mm3 (4.4-11.0)
[2017-11-04 05:52] LABS: POSITIVE COUNT NO; POSITIVE DIFFERENTIAL NO; POSITIVE MORPHOLOGY NO
[2017-11-04 06:21] LABS: Anion Gap 10 (5-15); BUN 9 mg/dL (7-18); BUN/Creat Ratio 14.6 RATIO (10-20); Calcium,Total 8.1 mg/dL (8.5-10.1); Chloride 105 mmol/L (98-107); Creatinine, Serum 0.62 mg/dL (0.70-1.30); EST Glomerular Filtration Rate 133 mL/min (>60); Est Glom Filt Rate - Afr Amer 161 mL/min (>60); Estimated Creatinine Clearance 67.36 ml/min; Glucose 71 mg/dL (74-106); Potassium 3.9 mmol/L (3.5-5.1); Sodium Level 140 mmol/L (136-145)
[2017-11-04 06:37] VITALS: PULSE 88; RESP 20; O2SAT 97
[2017-11-04] MEDS: Albuterol 2.5 MG/3 ML VIAL.NEB. INHALATION ×3 (06:37→23:35)
[2017-11-04 07:26] LABS: Bedside Glucose 76 mg/dL (70-110)
--- NOTE | 2017-11-04 07:30 | NURSING ---
Addendum entered by Jaylin Onofre 11/04/17 08:25: blood sugar 109 Original Note: pt blood sugar 76 this AM, Dr Alcaraz notified, orders for D5.45 NS at 60cc/hr and give 1/2 amp dextrose x1. will recheck BS.
[2017-11-04] MEDS: Dext 5%-0.45% NS 1,000 ML 60 ML IV (07:47)
[2017-11-04] MEDS: Dextrose 50%-Water 25 GM/50 ML DISP.SYRIN IV (07:48)
[2017-11-04 08:20] LABS: Bedside Glucose 109 mg/dL (70-110)
[2017-11-04 09:04] VITALS: PULSE 114; RESP 18; O2SAT 99
--- NOTE | 2017-11-04 09:14 | NURSING ---
pt sitting on side of bed for transport to Dr Bland's office this AM, dressed and ready to go. inner cannula cleaned and reinserted, new dressings applied.
[2017-11-04] MEDS: Tuberculin,Purif.prot.deriv. 50 TU/ML Vial 5 ML ID (09:35)
[2017-11-04 09:47] VITALS: BP 135/74; PULSE 110; RESP 18; O2SAT 98
--- NOTE | 2017-11-04 09:51 | NURSING ---
vishnu here and transporting pt via cot with trach collar, IVF infusing & oxygen 4 liters. vitals WNL>.
--- NOTE | 2017-11-04 11:40 | NURSING ---
Addendum entered by Jaylin Onofre 11/04/17 14:25: Dr Bland & Dr Alcaraz spoke and feel pt needs to go home with hospice d/t NPO status swallowing issues at this x. Dr Alcaraz to meet with pt and family. plant and equipment worker aware. Original Note: Pt returned from appt with Dr Bland, no new orders yet, apparently Dr Bland to call with orders & plan of care.
[2017-11-04 11:55] LABS: Bedside Glucose 87 mg/dL (70-110)
--- NOTE | 2017-11-04 15:42 | CASEMGMT ---
Social Work Dr. Alcaraz meeting with resident and resident family about hospice. Per Dr. Alcaraz resident is agreeable to hospice services. Spoke with resident and resident family in room. Resident is requesting for referral to be made to [facility] and plans to discharge home with hospice. Resident asking for hospice to contact resident daughterJosey - [phone] in regards to setting up a time to meet sometime this weekend as Josey [place] and will be coming into town this weekend. Resident agreeable to this professor of social work contacting Josey in regards to above information as well. Telephone call to Josey, Voicemail left requesting Josey to contact this professor of social work back. Support given. Telephone call to [facility], referral made. Hospice to contact Josey. Clinical information faxed. Will continue to follow. Ame KWAN, FERRY TERMINAL AGENT
[2017-11-04 15:47] VITALS: BP 134/66; PULSE 104; RESP 18; TEMP 36.1; O2SAT 99
--- NOTE | 2017-11-04 16:06 | CASEMGMT ---
Social Work Telephone call from Josey. This director social welfare communicating that Dr. Alcaraz/Dr Bland are recommending for resident to have hospice within the home/community. Josey voicing understanding and receptive to referral. Josey aware that hospice will be contacting Josey to set up a meeting time with meet with resident and Josey in regards to hospice within the home. Support given. Will continue to follow. Ame KWAN, CARDIOVASCULAR DISEASE SPECIALIST
--- NOTE | 2017-11-04 16:43 | PCM.TCUNOT ---
Subjective: Resident seen in room. His , sister, and nephew are present. I spoke with his daughter Josey from [place] who will be coming to visit tomorrow night. I have had [address] Bland regarding resident's care. Ganesh was supposed to see Dr. Bland this AM, but unfortunately, due to transportation issues, he was not able to see Dr. Bland. I let resident know Dr. Bland knows his case intimately and has spoken to Evert Jiménez from Speech Therapy, Dr. Kee Ashley from radiation oncology, and Dr. Castillo, ENT who performed tracheostomy on Ganesh. Ganesh's recently failed his swallowing study, recommendation was NPO, alternative feeding method. He has been maintained on IV fluids. I let resident know PEG tube placement is high risk because of his trach, and despite PEG tube, he may suffer recurrent aspiration leading to complications. After discussion with Dr. Bland, resident, family, we decided the best course of action is home with hospice, DNRCC, and give him a diet knowing he is at high risk of aspiration. I have talked with EVELYN Arias, to arrange for hospice to meet with family, then have all needed equipment at home prior to discharge early next week. I would like resident to be home for November 09, . I told his daughter Josey, resident has approximately 2-4 weeks to live, but he is high functioning, and he should attempt to trim his bucket list prior to his . Vitals/I&O's: Vital Signs Temp Pulse Resp BP Pulse Ox 97.0 F L 104 H 18 134/66 H 99 11/04/17 15:47 11/04/17 15:47 11/04/17 15:47 11/04/17 15:47 11/04/17 15:47 Oxygen Flow Rate (L/min) 7 Oxygen Delivery Method Trach Collar Weight: 90.01 kg Body Mass Index (BMI) 26.2 Intake and Output for Last 24 Hours 11/02/17 11/03/17 11/04/17 23:59 23:59 23:59 Intake Total 1032 / 1032 695 / 695 Output Total 300 / 300 325 / 325 Balance 1032 / 1032 395 / 395 -325 / -325 Laboratory Results 11/04/17 05:15: WBC 10.3, RBC 2.31 L, Hgb 7.4 L, Hct 23.9 L, MCV 103.5 H, MCH 32.0, MCHC 31.0 L, RDW 12.5, RDW Differential 44.8 H, Plt Count 320, MPV 8.1, Immature Gran % (Auto) 0.800, Neut % (Auto) 80.6 H, Lymph % (Auto) 7.2 L, [place] % (Auto) 10.5 H, Eos % (Auto) 0.7, Baso % (Auto) 0.2, Absolute Neuts (auto) 8.3 H, Absolute Lymphs (auto) 0.74 L, Total Counted Not Reportable 11/04/17 05:15: Sodium 140, Potassium 3.9, Chloride 105, Carbon Dioxide 25.0, Anion Gap 10, BUN 9, Creatinine 0.62 L, Estim Creat Clear Calc 67.36, Est GFR (MDRD) Af Amer 161, Est GFR (MDRD) Non-Af 133, BUN/Creatinine Ratio 14.6, Glucose 71 L, Calcium 8.1 L 11/04/17 07:22: POC Glucose 76 11/04/17 08:16: POC Glucose 109 11/04/17 11:45: POC Glucose 87 Past Medical History Past Medical History (Chronic Problems): Chronic Problems Esophageal cancer (Chronic) Cancer of neck (Chronic) Lung cancer (Chronic) Prostate cancer (Chronic) Hypertension (Chronic) Atrial fibrillation (Chronic) BPH (benign prostatic hyperplasia) (Chronic) Osteoarthritis (Chronic) GERD (gastroesophageal reflux disease) (Chronic) Allergies No Known Allergies Allergy (Verified 03/02/17 15:00) Home Medications: Ambulatory Orders Medication Instructions Recorded Calcium Carbonate/Vitamin D3 1 each PO DAILY 03/02/17 [Calcium 600 + Vit D3 Caplet] Doxazosin Mesylate [Cardura] 4 mg PO QHS 03/02/17 Finasteride [Proscar] 5 mg PO QHS 03/02/17 Metoprolol Succinate [Toprol Xl] 25 mg PO QHS 03/02/17 Multivitamin [Multiple Vitamins] 1 each PO DAILY 03/02/17 Phytonadione [Mephyton, Vitamin K1] 2.5 mg PO X1 03/02/17 Warfarin Sodium [Coumadin] 5 mg PO QHS 03/02/17 Surgical History: - - Tracheostomy, Esophageal stent. Psychiatric History: No pertinent psych hx Lives: Spouse/ Significant Other Smoking Status: Former smoker Tobacco Use: Non-smoker Alcohol: Occasional Drugs: None - *Family History Maternal History Items: No pertinent history Paternal History Items: No pertinent history Review of Systems Constitutional: Denies: Chills, Fever, Weight Change HEENT: Denies: Head Aches, Sinus Congestion, Sinus Drainage Cardiovascular: Denies: Chest Pain, Palpitations Respiratory: Denies: Cough, Shortness of breath at rest, Sputum production Gastrointestinal: Denies: Abdominal Pain, Nausea, Vomiting Genitourinary: Denies: Dysuria Musculoskeletal: Denies: Joint Pain, Joint Tenderness Skin: Denies: Rash, Wounds Neurological: Denies: Numbness, Tingling, Focal weakness Psychiatric: Denies: Anxiety, Depression, Homicidal Ideations, Suicidal Ideations Hematologic/ Lymphatic: Denies: Easy Bruising, Easy Bleeding Patient Problems: Active and Suspected Problems Dysphagia (Acute) Shortness of breath (Acute) - Physical Exam General: Alert, Oriented x3, Cooperative HEENT: Atraumatic, PERRLA, EOMI, Normocephalic Neck: Supple, No JVD, Negative Carotid Bruits, - - Tracheostomy. Lungs: Clear to auscultation, Normal air movement Cardiovascular: Regular rate, No murmurs Abdomen: Bowel Sounds Present, Soft, Non Tender Extremities: No edema, Capillary Refill Less than 3 Seconds Skin: No rashes, No breakdown Musculoskeletal: No Tenderness to Palpation of Joints or Extremities Neurological: Cranial nerves II-XII grossly intact Psych/Mental Status: Normal Affect, Appropriate Vital Signs Temp Pulse Resp BP Pulse Ox 97.0 F L 104 H 18 134/66 H 99 11/04/17 15:47 11/04/17 15:47 11/04/17 15:47 11/04/17 15:47 11/04/17 15:47 Oxygen Flow Rate (L/min) 7 Oxygen Delivery Method Trach Collar Weight: 90.01 kg Body Mass Index (BMI) 26.2 Intake and Output for Last 24 Hours 11/02/17 11/03/17 11/04/17 23:59 23:59 23:59 Intake Total 1032 / 1032 695 / 695 Output Total 300 / 300 325 / 325 Balance 1032 / 1032 395 / 395 -325 / -325 Laboratory Tests Past 24 Hrs 11/04/17 11/04/17 05:15 05:15 WBC 10.3 RBC 2.31 L Hgb 7.4 L Hct 23.9 L MCV 103.5 H MCH 32.0 MCHC 31.0 L RDW 12.5 RDW Differential 44.8 H Plt Count 320 MPV 8.1 Immature Gran % (Auto) 0.800 Neut % (Auto) 80.6 H Lymph % (Auto) 7.2 L [place] % (Auto) 10.5 H Eos % (Auto) 0.7 Baso % (Auto) 0.2 Absolute Neuts (auto) 8.3 H Absolute Lymphs (auto) 0.74 L Total Counted Not Reportable Sodium 140 Potassium 3.9 Chloride 105 Carbon Dioxide 25.0 Anion Gap 10 BUN 9 Creatinine 0.62 L Estim Creat Clear Calc 67.36 Est GFR (MDRD) Af Amer 161 Est GFR (MDRD) Non-Af 133 BUN/Creatinine Ratio 14.6 Glucose 71 L Calcium 8.1 L POC Glucose 11/04/17 11/04/17 11/04/17 11:45 08:16 07:22 POC Glucose 87 109 76 Assessment/Plan All Active Problems Dysphagia (Acute) Shortness of breath (Acute) 82 year old male with below past medical history significant for esophageal cancer, hospitalized for dysphagia, esophageal stent placed due to progression of cancer, admitted to TCU for rehabilitation, strengthening, prior to discharge home with significant other. Debility - PT/OT. Tracheostomy - ST. Pain - Tylenol 1000MG Q8H PRN mild pain. Bowel - Miralax 17GM daily, Senna/colace 1 tablet BID, Dulcoalx 10MG [place] daily PRN. Pneumonia vaccination - Administer Prevnar 13 and/or Pneumovax 23 as necessary. DVT prophylaxis - on Lovenox/warfarin bridge. Shortness of breath - Albuterol 2.5MG Q4H. Dysphagia - NPO recommended, will give him diet, risk outweigh benefit for PEG tube. Sore throat - Cepacol 1 lozenge 1 Q2H PRN, Peridex 15ML QID. BPH - Cardura 8MG QHS, Finasteride 5MG QHS. Congestion - Mucinex 600MG twice daily. Hypertension - Metoprolol succinate 25MG QHS. GERD - Pantoprazole 40MG daily. Atrial Fibrillation - Metoprolol succinate 25MG QHS, Warfarin 5MG 4x/day, 2.5MG 3x/day, on Lovenox bridge. Code Status - Recommend DNRCC. Esophageal Cancer - Hospice to meet with family Tuesday at 1:00PM, then discharge home with hospice.
--- NOTE | 2017-11-04 16:54 | PN_ITS ---
Subjective: Resident seen in room. His , sister, and nephew are present. I spoke with his daughter Josey from [place] who will be coming to visit tomorrow night. I have had [address] Bland regarding resident's care. Ganesh was supposed to see Dr. Bland this AM, but unfortunately, due to transportation issues, he was not able to see Dr. Bland. I let resident know Dr. Bland knows his case intimately and has spoken to Evert Jiménez from Speech Therapy, Dr. Kee Ashley from radiation oncology, and Dr. Castillo, ENT who performed tracheostomy on Ganesh. Ganesh's recently failed his swallowing study, recommendation was NPO, alternative feeding method. He has been maintained on IV fluids. I let resident know PEG tube placement is high risk because of his trach, and despite PEG tube, he may suffer recurrent aspiration leading to complications. After discussion with Dr. Bland, resident, family, we decided the best course of action is home with hospice, DNRCC, and give him a diet knowing he is at high risk of aspiration. I have talked with EVELYN Arias, to arrange for hospice to meet with family, then have all needed equipment at home prior to discharge early next week. I would like resident to be home for November 09, . I told his daughter Josey, resident has approximately 2-4 weeks to live, but he is high functioning, and he should attempt to trim his bucket list prior to his . Vitals/I&O's: Vital Signs Temp Pulse Resp BP Pulse Ox 97.0 F L 104 H 18 134/66 H 99 11/04/17 15:47 11/04/17 15:47 11/04/17 15:47 11/04/17 15:47 11/04/17 15:47 Oxygen Flow Rate (L/min) 7 Oxygen Delivery Method Trach Collar Weight: 90.01 kg Body Mass Index (BMI) 26.2 Intake and Output for Last 24 Hours 11/02/17 11/03/17 11/04/17 23:59 23:59 23:59 Intake Total 1032 / 1032 695 / 695 Output Total 300 / 300 325 / 325 Balance 1032 / 1032 395 / 395 -325 / -325 Laboratory Results 11/04/17 05:15: WBC 10.3, RBC 2.31 L, Hgb 7.4 L, Hct 23.9 L, MCV 103.5 H, MCH 32.0, MCHC 31.0 L, RDW 12.5, RDW Differential 44.8 H, Plt Count 320, MPV 8.1, Immature Gran % (Auto) 0.800, Neut % (Auto) 80.6 H, Lymph % (Auto) 7.2 L, [place] % (Auto) 10.5 H, Eos % (Auto) 0.7, Baso % (Auto) 0.2, Absolute Neuts (auto) 8.3 H, Absolute Lymphs (auto) 0.74 L, Total Counted Not Reportable 11/04/17 05:15: Sodium 140, Potassium 3.9, Chloride 105, Carbon Dioxide 25.0, Anion Gap 10, BUN 9, Creatinine 0.62 L, Estim Creat Clear Calc 67.36, Est GFR ( MDRD) Af Amer 161, Est GFR (MDRD) Non-Af 133, BUN/Creatinine Ratio 14.6, Glucose 71 L, Calcium 8.1 L 11/04/17 07:22: POC Glucose 76 11/04/17 08:16: POC Glucose 109 11/04/17 11:45: POC Glucose 87 Past Medical History Past Medical History (Chronic Problems): Chronic Problems Esophageal cancer (Chronic) Cancer of neck (Chronic) Lung cancer (Chronic) Prostate cancer (Chronic) Hypertension (Chronic) Atrial fibrillation (Chronic) BPH (benign prostatic hyperplasia) (Chronic) Osteoarthritis (Chronic) GERD (gastroesophageal reflux disease) (Chronic) Allergies No Known Allergies Allergy (Verified 03/02/17 15:00) Home Medications: Ambulatory Orders Medication Instructions Recorded Calcium Carbonate/Vitamin D3 1 each PO DAILY 03/02/17 [Calcium 600 + Vit D3 Caplet] Doxazosin Mesylate [Cardura] 4 mg PO QHS 03/02/17 Finasteride [Proscar] 5 mg PO QHS 03/02/17 Metoprolol Succinate [Toprol Xl] 25 mg PO QHS 03/02/17 Multivitamin [Multiple Vitamins] 1 each PO DAILY 03/02/17 Phytonadione [Mephyton, Vitamin K1] 2.5 mg PO X1 03/02/17 Warfarin Sodium [Coumadin] 5 mg PO QHS 03/02/17 Surgical History: - - Tracheostomy, Esophageal stent. Psychiatric History: No pertinent psych hx Lives: Spouse/ Significant Other Smoking Status: Former smoker Tobacco Use: Non-smoker Alcohol: Occasional Drugs: None - *Family History Maternal History Items: No pertinent history Paternal History Items: No pertinent history Review of Systems Constitutional: Denies: Chills, Fever, Weight Change HEENT: Denies: Head Aches, Sinus Congestion, Sinus Drainage Cardiovascular: Denies: Chest Pain, Palpitations Respiratory: Denies: Cough, Shortness of breath at rest, Sputum production Gastrointestinal: Denies: Abdominal Pain, Nausea, Vomiting Genitourinary: Denies: Dysuria Musculoskeletal: Denies: Joint Pain, Joint Tenderness Skin: Denies: Rash, Wounds Neurological: Denies: Numbness, Tingling, Focal weakness Psychiatric: Denies: Anxiety, Depression, Homicidal Ideations, Suicidal Ideations Hematologic/ Lymphatic: Denies: Easy Bruising, Easy Bleeding Patient Problems: Active and Suspected Problems Dysphagia (Acute) Shortness of breath (Acute) - Physical Exam General: Alert, Oriented x3, Cooperative HEENT: Atraumatic, PERRLA, EOMI, Normocephalic Neck: Supple, No JVD, Negative Carotid Bruits, - - Tracheostomy. Lungs: Clear to auscultation, Normal air movement Cardiovascular: Regular rate, No murmurs Abdomen: Bowel Sounds Present, Soft, Non Tender Extremities: No edema, Capillary Refill Less than 3 Seconds Skin: No rashes, No breakdown Musculoskeletal: No Tenderness to Palpation of Joints or Extremities Neurological: Cranial nerves II-XII grossly intact Psych/Mental Status: Normal Affect, Appropriate Vital Signs Temp Pulse Resp BP Pulse Ox 97.0 F L 104 H 18 134/66 H 99 11/04/17 15:47 11/04/17 15:47 11/04/17 15:47 11/04/17 15:47 11/04/17 15:47 Oxygen Flow Rate (L/min) 7 Oxygen Delivery Method Trach Collar Weight: 90.01 kg Body Mass Index (BMI) 26.2 Intake and Output for Last 24 Hours 11/02/17 11/03/17 11/04/17 23:59 23:59 23:59 Intake Total 1032 / 1032 695 / 695 Output Total 300 / 300 325 / 325 Balance 1032 / 1032 395 / 395 -325 / -325 Laboratory Tests Past 24 Hrs 11/04/17 11/04/17 05:15 05:15 WBC 10.3 RBC 2.31 L Hgb 7.4 L Hct 23.9 L MCV 103.5 H MCH 32.0 MCHC 31.0 L RDW 12.5 RDW Differential 44.8 H Plt Count 320 MPV 8.1 Immature Gran % (Auto) 0.800 Neut % (Auto) 80.6 H Lymph % (Auto) 7.2 L [place] % (Auto) 10.5 H Eos % (Auto) 0.7 Baso % (Auto) 0.2 Absolute Neuts (auto) 8.3 H Absolute Lymphs (auto) 0.74 L Total Counted Not Reportable Sodium 140 Potassium 3.9 Chloride 105 Carbon Dioxide 25.0 Anion Gap 10 BUN 9 Creatinine 0.62 L Estim Creat Clear Calc 67.36 Est GFR (MDRD) Af Amer 161 Est GFR (MDRD) Non-Af 133 BUN/Creatinine Ratio 14.6 Glucose 71 L Calcium 8.1 L POC Glucose 11/04/17 11/04/17 11/04/17 11:45 08:16 07:22 POC Glucose 87 109 76 Assessment/Plan All Active Problems Dysphagia (Acute) Shortness of breath (Acute) 82 year old male with below past medical history significant for esophageal cancer, hospitalized for dysphagia, esophageal stent placed due to progression of cancer, admitted to TCU for rehabilitation, strengthening, prior to discharge home with significant other. * Debility - PT/OT. * Tracheostomy - ST. * Pain - Tylenol 1000MG Q8H PRN mild pain. * Bowel - Miralax 17GM daily, Senna/colace 1 tablet BID, Dulcoalx 10MG [place] daily PRN. * Pneumonia vaccination - Administer Prevnar 13 and/or Pneumovax 23 as necessary. * DVT prophylaxis - on Lovenox/warfarin bridge. * Shortness of breath - Albuterol 2.5MG Q4H. * Dysphagia - NPO recommended, will give him diet, risk outweigh benefit for PEG tube. * Sore throat - Cepacol 1 lozenge 1 Q2H PRN, Peridex 15ML QID. * BPH - Cardura 8MG QHS, Finasteride 5MG QHS. * Congestion - Mucinex 600MG twice daily. * Hypertension - Metoprolol succinate 25MG QHS. * GERD - Pantoprazole 40MG daily. * Atrial Fibrillation - Metoprolol succinate 25MG QHS, Warfarin 5MG 4x/day, 2.5MG 3x/day, on Lovenox bridge. * Code Status - Recommend DNRCC. * Esophageal Cancer - Hospice to meet with family Tuesday at 1:00PM, then discharge home with hospice.
[2017-11-04 19:10] VITALS: PULSE 118; RESP 21
[2017-11-04 23:35] VITALS: PULSE 90; RESP 18
[2017-11-05] VITALS (7 sets, daily range): BP systolic 128; BP diastolic 66; PULSE 87–110; RESP 16–20; TEMP 36.4; O2SAT 95–98
[2017-11-05] MEDS: BENZOCAINE/MENTHOL 1 LOZENGE MUCOUS MEM (00:48)
--- NOTE | 2017-11-05 01:41 | NURSING ---
Pt c/o pain. Pt refusing to consume oral medications d/t breathing difficulties. Dr Alcaraz N.O. Toradol and Norflex IM.
[2017-11-05] MEDS: Dext 5%-0.45% NS 1,000 ML 60 ML IV ×2 (01:46→18:37)
[2017-11-05] MEDS: Ketorolac 30 MG/ML Syringe IM (03:01)
[2017-11-05] MEDS: Orphenadrine 60 MG/2 ML Ampul IM (03:11)
[2017-11-05] MEDS: Albuterol 2.5 MG/3 ML VIAL.NEB. INHALATION ×6 (03:12→23:31)
[2017-11-05] MEDS: Enoxaparin 40 MG/0.4 ML Syringe SC (03:15)
[2017-11-05 07:01] LABS: Bedside Glucose 113 mg/dL (70-110)
[2017-11-05 11:51] LABS: Bedside Glucose 109 mg/dL (70-110)
--- NOTE | 2017-11-05 14:45 | NURSING ---
trach care done and gown changed- denies pain and needs at this time
[2017-11-05 18:05] LABS: Bedside Glucose 112 mg/dL (70-110)
[2017-11-05] MEDS: Menthol/Lanolin/Calamine/Znox 113 GM Tube 1 APPLIC TOPICAL (21:48)
[2017-11-05] MEDS: Chlorhexidine 480 ML 15 ML PO (21:49)
[2017-11-06] VITALS (7 sets, daily range): BP systolic 122; BP diastolic 69; PULSE 87–107; RESP 16–20; TEMP 36.3; O2SAT 98–100
[2017-11-06 00:41] LABS: Bedside Glucose 119 mg/dL (70-110)
--- NOTE | 2017-11-06 01:16 | NURSING ---
Addendum entered by Anjali Robert 11/06/17 01:20: BREANNA Guzmán checked pulse ox after trach care was provided and was 97%. Extra trach kit at bedside. Original Note: Pt's trach has been suctioned and the gauze has been changed multiple times this shift (see nursing rounds intervention). Trach care was just provided by this RN and BREANNA Guzmán. Pt suctioned again for large amounts of thick/creamy sputum. Inner cannula cleaned with hydrogen peroxide & sterile water & reinserted. Skin around trach reddened-cleaned with hydrogen peroxide and sterile water, new gauze applied. Pt resting in bed, no s/s of distress noted.
[2017-11-06] MEDS: Albuterol 2.5 MG/3 ML VIAL.NEB. INHALATION ×6 (03:53→23:25)
--- NOTE | 2017-11-06 03:59 | NURSING ---
Pt beginning to get a sore on the right side of his nose from his glasses. Gauze applied to glasses for some extra cushion to his nose.
[2017-11-06] MEDS: Chlorhexidine 480 ML 15 ML PO ×4 (06:29→20:33)
[2017-11-06] MEDS: Enoxaparin 40 MG/0.4 ML Syringe SC (06:30)
[2017-11-06] MEDS: Menthol/Lanolin/Calamine/Znox 113 GM Tube 1 APPLIC TOPICAL ×2 (06:31→20:36)
[2017-11-06 07:06] LABS: Bedside Glucose 115 mg/dL (70-110)
--- NOTE | 2017-11-06 10:25 | NURSING ---
Pt continues to refuse all PO medications and food/fluids. Trach care provided, patient tolerated well. IV fluids continue, IV site intact, without redness or swelling.
[2017-11-06] MEDS: Dext 5%-0.45% NS 1,000 ML 60 ML IV (10:44)
[2017-11-06 11:46] LABS: Bedside Glucose 113 mg/dL (70-110)
[2017-11-06 17:10] LABS: Bedside Glucose 113 mg/dL (70-110)
[2017-11-06] MEDS: guaiFENesin 10 ML UDC (200MG/10ML) PO ×2 (17:51→20:33)
--- NOTE | 2017-11-06 17:55 | NURSING ---
Pt. signed paperwork to discharge home with Hospice care. Would like to discharge tomorrow. Patient would like to have a PICC line placed prior to discharge so IVF can be run at home. Will leave message for aids social worker.
--- NOTE | 2017-11-06 20:44 | NURSING ---
IV to the left forearm infiltrated and IV taken out. Patient refusing to have another IV put in at this time. Patient thinks that he could possibly get a port put in and so he does not want to be stuck again. Dr. Alcaraz notified of this. Orders given to d/c fluids.
[2017-11-07 00:15] LABS: Bedside Glucose 149 mg/dL (70-110)
[2017-11-07 05:56] LABS: International Normalized Ratio 1.3; Prothrombin Time (Protime)PT. 16.5 SECONDS (11.7-14.9)
[2017-11-07] MEDS: Chlorhexidine 480 ML 15 ML PO ×2 (06:18→11:41)
[2017-11-07] MEDS: guaiFENesin 10 ML UDC (200MG/10ML) PO ×2 (06:19→10:31)
[2017-11-07] MEDS: Menthol/Lanolin/Calamine/Znox 113 GM Tube 1 APPLIC TOPICAL (06:20)
[2017-11-07] MEDS: Enoxaparin 40 MG/0.4 ML Syringe SC (06:21)
[2017-11-07 06:38] VITALS: PULSE 88; RESP 20; O2SAT 97
[2017-11-07] MEDS: Albuterol 2.5 MG/3 ML VIAL.NEB. INHALATION ×2 (06:38→10:35)
[2017-11-07 07:01] LABS: Bedside Glucose 106 mg/dL (70-110)
--- NOTE | 2017-11-07 10:24 | NURSING ---
dressing changed around trach d/t lots of greenish/yellow sputum, trach collar changed to. Pt still painful d/t irritated skin around it. cleansed with soap water, used no sting barrier swab.
[2017-11-07 10:35] VITALS: PULSE 82; RESP 20
--- NOTE | 2017-11-07 11:51 | PCM.DC ---
- Discharge Diagnoses Current Active Problems: Current Active and Chronic Problems Dysphagia (Acute) Esophageal cancer (Chronic) Cancer of neck (Chronic) Lung cancer (Chronic) Prostate cancer (Chronic) Hypertension (Chronic) Atrial fibrillation (Chronic) BPH (benign prostatic hyperplasia) (Chronic) Osteoarthritis (Chronic) Shortness of breath (Acute) GERD (gastroesophageal reflux disease) (Chronic) You will use the following diet at home:: Other Your food should be the consistency of: Puree Your liquids should be the consistency of: [place] Thick Discharge Activity: Return to Normal Activity, May Shower, Use Walker Weight Bearing Status: Weight bearing as tolerated Call your doctor if you observe: Fever of 101 or Higher, Inability to urinate, Inability to have a bowel movement, Shortness of breath, Chest pain, Uncontrolled pain Allergies/Adverse Reactions: Allergies No Known Allergies Allergy (Verified 03/02/17 15:00) Medications to take at Discharge Acetaminophen [Tylenol] 1,000 mg PO Q8H PRN PRN tablet 11/07/17 Albuterol Aerosols [Ventolin Aerosols] 2.5 mg INHALATION Q4H.RT #60 vial.neb. 11/07/17 Menthol/Lanolin/Calamine/Znox [Calmoseptine Ointment] 1 applic TOPICAL BID@0600,2200 tube 11/07/17 The following prescriptions were given: Albuterol Aerosols [Ventolin Aerosols] 2.5 mg INHALATION Q4H.RT #60 vial.neb. Primary Care Physician: Vini Carcamo,Out of [Primary Care Provider] - Please follow up with your Primary Care Physician in: 1 week. Test Results: Please Follow Up With: Mack Maldonado Please Follow Up With: Emmett Bland DO Please Follow Up With: Aditya Lui Please Follow Up With: Aydin Laird Proposed Discharge Date: 11/07/17
--- NOTE | 2017-11-07 11:53 | PCM.DC.SUM ---
Discharge Date and Diagnosis - Problem List Patient Problems: Active and Suspected Problems Dysphagia (Acute) Shortness of breath (Acute) Date of Admission: 10/27/17 Date of Discharge: 11/07/17 - Primary Discharge Diagnosis Active and Suspected Problems Dysphagia (Acute) Shortness of breath (Acute) - Secondary Discharge Diagnosis Chronic Problems Esophageal cancer (Chronic) Cancer of neck (Chronic) Lung cancer (Chronic) Prostate cancer (Chronic) Hypertension (Chronic) Atrial fibrillation (Chronic) BPH (benign prostatic hyperplasia) (Chronic) Osteoarthritis (Chronic) GERD (gastroesophageal reflux disease) (Chronic) Hospital Course and Treatment Operations: None Procedures: None Summary of Care Provided: The patient is a 82 year old Male with below past medical history significant for esophageal cancer, hospitalized for dysphagia, esophageal stent placed due to progression of cancer, admitted to TCU for rehabilitation, strengthening, prior to discharge home with significant other. Resident has esophageal cancer, status stent placement, failed swallowing study, made NPO, PEG tube too high risk in light of trach, recommend home with hospice, with diet. Discharge home with hospice. Discharge Diet: - - Pureed, [place] thick diet. Discharge Activity: Return to Normal Activity, May Shower, Use Walker Weight Bearing Status: Weight bearing as tolerated Call your doctor if you observe: Fever of 101 or Higher, Inability to urinate, Inability to have a bowel movement, Shortness of breath, Chest pain, Uncontrolled pain Home Medications: Medications to take at Discharge Acetaminophen [Tylenol] 1,000 mg PO Q8H PRN PRN tablet 11/07/17 Albuterol Aerosols [Ventolin Aerosols] 2.5 mg INHALATION Q4H.RT #60 vial.neb. 11/07/17 Menthol/Lanolin/Calamine/Znox [Calmoseptine Ointment] 1 applic TOPICAL BID@0600,2200 tube 11/07/17 Following Prescrptions Were Given to Patient: Albuterol Aerosols [Ventolin Aerosols] 2.5 mg INHALATION Q4H.RT #60 vial.neb. Primary Care Physician: Vini Carcamo,Out of [Primary Care Provider] - Please follow up with your Primary Care Physician in: 1 week. Please Follow Up With: Mack Maldonado Please Follow Up With: Emmett Bland DO Please Follow Up With: Aditya Lui Please Follow Up With: Aydin Laird Disposition: Home with Hospice Minutes spent on discharge:: 30 Patient Condition:: Poor Medical Necessity - Tobacco Use Smoking Status: Former smoker Tobacco Use: Non-smoker Meaningful Use Info Meaningful Use Diagnoses (Choose all that apply): None applicable
--- NOTE | 2017-11-07 12:41 | CASEMGMT ---
Addendum entered by Ame Yang 11/07/17 12:48: Hospice to set up all durable medical equipment. Original Note: Social Work Resident and resident family meeting with hospice on 11/06/17 and have decided to discharge home with hospice services. Emotional support given. Resident requesting to discharge as soon as possible and would like to discharge home today with hospice services. Telephone call to [facility], Alicia. Alicia reporting to be able to accept resident and are planning for a discharge today. Notified resident of above information. Transportation set up on 11/07/17 @ 2:00pm. Transportation form completed and placed with resident discharge information. Transportation set up through [facility]. Proposed discharge date: 11/07/17 PLAN: Discharge home with hospice services. Ame KWAN, NEEDLE STRAIGHTENER
--- NOTE | 2017-11-07 12:59 | MDS.RN ---
Information for the mds was obtained from review of the clinical record, interview of resident, staff, and direct observation of resident's care.
--- NOTE | 2017-11-07 12:59 | NURSING ---
attempted to call [facility] nurse via phone # given, no answer. will try later.
--- NOTE | 2017-11-07 13:01 | NURSING ---
taught daughter trach care of inner cannula and skin around trach. daughter demonstrated removal of inner cannula & reinsertion. did well. daughter asked questions and denied any others. reinforced that hospice will go over it as well. Pt will leave at 1400 via ambulance. Daughter taking personal belongings.
--- NOTE | 2017-11-07 14:01 | NURSING ---
Addendum entered by Jaylin Onofre 11/07/17 14:02: 1330 [address]iel in hospice called report given Original Note: transport here to take pt home, meeting hospice at home.
[2017-11-07 14:29] VITALS: BP 117/67; PULSE 131; RESP 18; TEMP 36.4; O2SAT 98
== END 2017-11-07 14:00 | disposition hospice, home (50) | DRG 949 ==
PROVIDERS: Admitting Provider Family Medicine Geriatric Medicine; Visit Provider Family Medicine Geriatric Medicine
DX: Z48.815 Encounter for surgical aftercare following surgery on the digestive system (principal); C15.9 Malignant neoplasm of esophagus, unspecified; Z93.0 Tracheostomy status; N40.0 Benign prostatic hyperplasia without lower urinary tract symptoms; I48.2 Chronic atrial fibrillation; K21.9 Gastro-esophageal reflux disease without esophagitis; I10 Essential (primary) hypertension; M19.90 Unspecified osteoarthritis, unspecified site; R13.10 Dysphagia, unspecified; Z87.891 Personal history of nicotine dependence; Z85.46 Personal history of malignant neoplasm of prostate; Z85.118 Personal history of other malignant neoplasm of bronchus and lung; Z66 Do not resuscitate
CPT/HCPCS: 31720; 36415; 74230; 80048; 82962; 85025; 85610; 87070; 87205; 92507; 92526; 92610; 94640; 94668; 97110; 97116; 97162; 97166; 97530; 97535; 97802; J7030; J7799